=== PATIENT | male | born 1955 | race Asian ===

== ENCOUNTER 2021-10-12 16:46 | Emergency (ER) | payer MEDICAID | END 2021-10-12 17:51 | disposition home or self-care (01) | LOC: EMS 16:48 | DX: S01.512A Laceration without foreign body of oral cavity, initial encounter (principal); V49.49XA Driver injured in collision with other motor vehicles in traffic accident, initial encounter; Y93.89 Activity, other specified; Y92.89 Other specified places as the place of occurrence of the external cause; Y99.8 Other external cause status | CPT/HCPCS: 99283 ==

== ENCOUNTER 2024-01-12 19:15 | Emergency (ER) | payer MEDICAID, OTHER ==
[~2024-01-12] VITALS: Ht 162.6 cm; Wt 52.3 kg
[2024-01-12 19:39] VITALS: BP 118/73; PULSE 91; RESP 16; TEMP 98.1
[2024-01-12 19:57] LABS: BASOPHILS % (AUTO) 0.5 % (0.0-2.0); EOSINOPHILS % (AUTO) 0.3 % (1.0-6.0); HEMATOCRIT 24.9 % (41-53); HEMOGLOBIN 8.3 g/dL (13.5-17.5); LYMPHOCYTES # (AUTO) 0.2 K/uL (1.0-4.8); LYMPHOCYTES % (AUTO) 2.2 % (22.0-44.0); MEAN CORPUSCULAR HEMOGLOBIN 25.8 pg (26.0-34.0); MEAN CORPUSCULAR HGB CONC 33.2 G/dL (31.0-37.0); MEAN CORPUSCULAR VOLUME 78 fL (80-100); MONOCYTES # (AUTO) 0.3 K/uL (0.1-1.0); MONOCYTES % (AUTO) 3.8 % (2.0-9.0); NEUTROPHILS # (AUTO) 6.5 K/uL (1.8-7.7); RED CELL DISTRIBUTION WIDTH 23.9 % (11.5-14.5)
[2024-01-12 19:58] LABS: NEUTROPHILS % (AUTO) 93.2 % (40.0-70.0)
[2024-01-12 20:06] LABS: PLATELET COUNT (AUTO) 27 K/uL (150-450); PLATELET MORPHOLOGY COMMENT GIANT PLTS PRESENT; RBC MORPHOLOGY COMMENT ABNORMAL RBC MORPH
[2024-01-12 20:07] LABS: PATHOLOGY REVIEW, DIFF YES
[2024-01-12 20:29] LABS: TROPONIN I-HIGH SENSITIVITY 8 ng/L (<76)
[2024-01-12 20:31] LABS: ANION GAP 11 mmol/L (8-16); CALCIUM, TOTAL 7.7 mg/dL (8.8-10.5); CARBON DIOXIDE 24 mmol/L (22-29); CHLORIDE 97 mmol/L (98-107); CREATININE 0.96 mg/dL (0.60-1.30); GLOMERULAR FILTR. RATE CALC > 60 mL/min (>60); GLUCOSE,RANDOM 125 mg/dL (70-110); POTASSIUM 4.1 mmol/L (3.5-5.1); SODIUM SERUM 132 mmol/L (136-145); UREA NITROGEN, BLOOD 33 mg/dL (7-18)
[2024-01-12 20:37] LABS: ALANINE AMINOTRANSFERASE 21 U/L (12-78); ALBUMIN 3.1 g/dL (3.4-5.0); ALKALINE PHOSPHATASE 93 U/L (46-116); ASPARTATE AMINOTRANSFERASE 25 U/L (15-37); BILIRUBIN,TOTAL 0.8 mg/dL (0.1-1.0); CREATINE KINASE, TOTAL ONLY 47 U/L (39-308)
[2024-01-12] MEDS: ACETAMINOPHEN 500 MG TABLET PO ONE (22:55)
[2024-01-12] MEDS: SODIUM CHLORIDE 0.9% 1,000 ML IV ONE (23:07)
[2024-01-12] MEDS: ONDANSETRON HCL 4 MG/2 ML VIAL IVP ONE (23:07)
[2024-01-12 23:53] LABS: COVID AG,FIA SOURCE NASAL SWAB
[2024-01-13] LABS: INFLUENZA TYPE A NEGATIVE FOR TYPE A (NEGATIVE); INFLUENZA TYPE B POSITIVE FOR TYPE B (NEGATIVE); SARS-COV2 (COVID) ANTIGEN,FIA Negative (Negative)
== END 2024-01-13 03:15 | disposition home or self-care (01) ==
LOC: EMS 19:15
DX: J10.1 Influenza due to other identified influenza virus with other respiratory manifestations (principal); R42 Dizziness and giddiness; D64.9 Anemia, unspecified; M10.9 Gout, unspecified; Z91.013 Allergy to seafood; Z20.822 Contact with and (suspected) exposure to COVID-19
CPT/HCPCS: 99285; 70450; 96374; 71045; 96361; 87426; 80053; 82550; 84484; 85025; 87804; 36415; 74176; 93005; J2405; J7030

== ENCOUNTER 2025-04-14 15:21 | Emergency (ER) | payer OTHER ==
[~2025-04-14] VITALS: Ht 157.5 cm; Wt 52.3 kg
[2025-04-14 15:31] VITALS: TEMP 98.5
[2025-04-14] MEDS: ACETAMINOPHEN 500 MG TABLET PO ONE (18:11)
[2025-04-14 19:36] VITALS: BP 140/87; PULSE 76; RESP 18; O2SAT 98
[2025-04-14] MEDS: IBUPROFEN 600 MG TABLET PO ONE (20:08)
[2025-04-14] MEDS ORDERED: ACET-66 PO (20:32)
[2025-04-14] MEDS ORDERED: IBUP-1554 PO (20:32)
== END 2025-04-14 20:47 | disposition home or self-care (01) ==
LOC: EMS 15:21
DX: S90.32XA Contusion of left foot, initial encounter (principal); Z91.013 Allergy to seafood; Y03.0XXA Assault by being hit or run over by motor vehicle, initial encounter; Y93.01 Activity, walking, marching and hiking; Y92.89 Other specified places as the place of occurrence of the external cause; Y99.8 Other external cause status
CPT/HCPCS: 99283